=== PATIENT | female | born 1970 | race Caucasian/White ===

== ENCOUNTER 2022-03-29 09:12 | Day surgery (SDC) | payer OTHER ==
[~2022-03-29] VITALS: Ht 157.5 cm; Wt 70.3 kg
[2022-03-29] MEDS ORDERED: MIDAZOLAM 2 MG/2 ML VIAL ONE (10:36)
[2022-03-29] MEDS ORDERED: fentaNYL citrate 0.05 MG/ML VIAL ONE (10:36)
[2022-03-29] MEDS ORDERED: LIDOCAINE 2% 100 MG/5 ML UJET TP ONE (10:37)
[2022-03-29] MEDS ORDERED: fentaNYL citrate 0.05 MG/ML VIAL IVP ONE (13:05)
== END 2022-03-29 11:50 | disposition home or self-care (01) ==
LOC: MDS 09:12 → MMU 09:12 → MDS 11:50
PROVIDERS: ATTEND Internal Medicine Gastroenterology
DX: Z12.11 Encounter for screening for malignant neoplasm of colon (principal); Z86.010 Personal history of colon polyps; I10 Essential (primary) hypertension; K82.4 Cholesterolosis of gallbladder; Z20.822 Contact with and (suspected) exposure to COVID-19; Z79.899 Other long term (current) drug therapy
CPT/HCPCS: 45378; 81025; 87426; J3010; J2250